=== PATIENT | male | born 1955 | race Caucasian/White ===

== ENCOUNTER 2022-04-11 11:09 | Emergency (ER) | payer MEDICARE, BC, SELFPAY ==
[2022-04-11 11:23] VITALS: BP 148/75; PULSE 69; RESP 20; TEMP 37.2; O2SAT 96; BMI 26.7
[2022-04-11 11:30] VITALS: BP 143/79; PULSE 70; RESP 13; O2SAT 96
[2022-04-11 12:00] VITALS: BP 134/69; PULSE 67; RESP 14; O2SAT 95
--- NOTE | 2022-04-11 12:09 | ED.GENADULT ---
HPI - General Adult General Chief complaint: Chest Pain Stated complaint: Covid + chest discomfort,sore throat Time Seen by Provider: 04/11/22 11:21 History of Present Illness HPI narrative: 66-year-old man presenting to the emergency department with complaint of generally unwell specifically feeling some a tightness like a band across his low chest it is not pleuritic. Is having some cough that can productive. Believes he has had a fever but has never been measured. Of primary complaint though really is sore throat such that has kept him up. No exposures to strep but has some concerns about that. Diagnosis recently though does include COVID. He is fully vaccinated and boosted. He tested positive 2 days ago with symptoms beginning 2 and half days ago with little tickle in his throat. Treatments have included acetaminophen an [place] nighttime cold medicine. Coughing fits are also keeping up. He describes some degree of postnasal drip. No abdominal pain. No diarrhea. No vomiting. Was describing some myalgias that admittedly are a little better today. They are also wondering about Paxlovid treatment, whether they'd still be a candidate. Related Data Previous Rx's Medication Instructions Recorded nirmatrelvir 300 mg (150 mg See Rx Instructions PO .COMPLEX 04/11/22 x2)-ritonavir 100 mg tablet,dose #30 ea pack(EUA) (Paxlovid) Allergies Allergy/AdvReac Type Severity Reaction Status Date / Time No Known Drug Allergies Allergy Verified 04/11/22 11:22 Review of Systems Status of ROS: Reports: 10 or more systems reviewed and unremarkable except as noted in History and below PFSH PFSH Social History Smoking Status: Former smoker Do you use any of these nicotine containing products: None Second hand tobacco smoke exposure: No How often do you have a drink containing alcohol: 2-3 times a week How many standard drinks containing alcohol do you have on a typical day: 1 or 2 How often do you have six or more drinks on one occasion: Never AUDIT-C Alcohol total score: 3 Non-prescribed substance use: denies use service: Yes Exam Narrative: Exam Narrative: Is pleasant. Breathing easily. Easily conversant. Cranial nerves 2-12 intact. No facial swelling erythema tenderness. Sound slightly congested. Has nice thick mustache. Oropharynx is moist not particularly erythematous. Neck is supple without lymphadenopathy. Lungs are clear with equal expansion excursion. Cardiovascular with regular rate and rhythm no murmur rub or gallop identified. There is no reproducible pain to palpation across the chest although there is some discomfort along the anterior costal margins somewhat in the area that he has been describing his discomfort. Abdomen otherwise is soft and nontender. Normoactive bowel sounds. We will extremities without difficulty. There is no edema or pain to palpation. Const: Vital Signs, click to edit/add: Vital Signs - 24 hr 04/11/22 11:23 Temperature 99 F Pulse Rate [Femora l] 69 Respiratory Rate 20 Blood Pressure [Le ft Upper Arm] 148/75 H Pulse Oximetry 96 Oxygen Delivery Me thod Room Air Documenting provider has reviewed patient's vital signs: yes Course Course Hospital Course: Monitored on oximetry which is persistently above 95%. I did spray his throat with Hurricaine spray and this offered a good deal of relief. Vital Signs Vital signs: Initial Vital Signs Temperature 99 F 04/11/22 11:23 Temperature Source Temporal Artery Scan 04/11/22 11:23 Pulse Rate 69 04/11/22 11:23 Pulse Rhythm 04/11/22 11:23 Respiratory Rate 20 04/11/22 11:23 Blood Pressure 148/75 H 04/11/22 11:23 Blood Pressure Mean 99 04/11/22 11:23 Blood Pressure Position Supine 04/11/22 11:23 Pulse Oximetry 96 04/11/22 11:23 Oxygen Delivery Method 04/11/22 11:23 Vital Signs Temperature 99 F 04/11/22 11:23 Pulse Rate 69 04/11/22 11:23 Respiratory Rate 20 04/11/22 11:23 Blood Pressure 148/75 H 04/11/22 11:23 Pulse Oximetry 96 04/11/22 11:23 Oxygen Delivery Method 04/11/22 11:23 Temperature 99 F 04/11/22 11:23 Pulse Rate 69 04/11/22 11:23 Respiratory Rate 20 04/11/22 11:23 Blood Pressure 148/75 H 04/11/22 11:23 Pulse Oximetry 96 04/11/22 11:23 Oxygen Delivery Method 04/11/22 11:23 Medical Decision Making MDM Narrative Medical decision making narrative: I do think that all symptoms can be explained by COVID. I think unlikely to be strep positive. Given COVID diagnosis unlikely to be related pneumonia and too early for pulmonary embolus. Given that he takes no medications and no known renal problems, no cardiac history either incidentally, I would expect him to be a candidate for Paxlovid. Will go ahead and check a point of care creatinine and discharge in a busy emergency department anticipating adequate renal function. If creatinine returns in the concerning range, will contact patient. Lab Data Lab results reviewed: Yes I reviewed the patient's lab results Labs: Point of care creatinine was 1.1 ECG Data Attestation: I personally reviewed and interpreted this ECG as follows: (EKG by my read shows normal sinus no ischemic changes. Rate of 68.) Discharge Plan Discharge Clinical Impression: COVID-19, Chest pain, Pharyngitis Patient Disposition: Home w/ Parent or Adult Condition: Improved Additional Instructions: As I noted, 20% benzocaine is available [id number] last checked in the form of Orajel extra-strength. You might ask the pharmacist for another option? Continue to focus on hydration. Sleep under the mist of cool mist humidifier. If cough seems to be triggered somewhat by postnasal drip, pseudoephedrine might be helpful. Might try Delsym otherwise. Can take up to 100 mg of ibuprofen up to 1000 mg of acetaminophen per dose. Alternative to the ibuprofen might be up to 500 mg of naproxen 2 times daily. I will call you if this creatinine is unexpectedly off and requires different Paxlovid dosing Please quarantine for 10 days from onset of symptoms If you are having increasing shortness of breath, get yourself a pulse oxygen monitor and return to the emergency department for oxygen saturations that are persistently around 90%. Prescriptions: New Paxlovid (EUA) 300 mg (150 mg x 2)-100 mg tablets,dose pack See Rx Instructions .ROUTE .COMPLEX Qty: 30 0RF Rx Instructions: take TWO 150 mg tablets of nirmatrelvir with ONE 100 mg tablet of ritonavir twice daily for 5 days Follow Up/Referrals: Horacio Carvalho MD [Primary Care Provider] - Stand Alone Forms: [email or web address] Info Instructions
--- OUTSIDE RECORDS SUMMARY | 2022-04-11 12:12 | XMS_ITS | Clinical Summary ---
:1955 Author Organization [facility] [employer] [facility] Address [place] [address] Care Team Providers Name Role Phone Delonte Toro MD Primary Care Provider [phone] Allergies No known active allergies Medications No known medications Active Problems Problem Noted Date History of colon polyps Overview: Colonoscopy 03/2019 polyp, repeat in 5 y ears Immunizations Name Administration Dates Next Due AMB Influenza, IIV4 PF (=>6 mos Flulaval,Fluzone 04/15/2019 Fluarix)(Flu Clinic Only) Tdap 02/08/2019 Zoster (Shingrix-RZV, recombinant) 04/15/2019, 02/08/2019 Family History Medical History Relation Name Comments Cancer Brother unknown primary Cancer Father also had lung ca ncer Cancer-prostate Father Cancer-colon Mother at 79 Cancer-colon Other maternal uncle Cancer-breast Sister Diabetes Sister Relation Name Status Comments Brother Father Mother Other Sister Social History Tobacco Use Types Packs/Day Years Used Date Former Smoker 0.5 15 04/1975 - 06/1994 Smokeless Tobacco: Never Used Tobacco Cessation: Counseling Given: Yes Alcohol Use Standard Drinks/Week Comments Yes 2 (1 standard drink = 0.6 oz pure alcoho l) occasionally Alcohol Habits Answer Date Recorded How often do you have a drink containing alcohol? Not asked How many drinks containing alcohol do you have on a Not aske d typical day when you are drinking? How often do you have six or more drinks on one occasion? Mo nthly 01/27/2019 Comment: occasionally 01/27/2019 Physical Activity Answer Date Recorded On average, how many days per week do you engage in moderate 3 days 02/08/2019 to strenuous exercise (like walking fast, running, jogging, dancing, swimming, biking, or other activities that cause a light or heavy sweat)? On average, how many minutes do you engage in exercise at No t asked this level? Stress Answer Date Recorded Do you feel stress - tense, restless, nervous, or Only a lit tle 02/08/2019 anxious, or unable to sleep at night because your mind is troubled all the time - these days? Sex Assigned at Date Recorded Not on file Obstetrics History Last Filed Vital Signs Vital Sign Reading Time Taken Comments Blood Pressure 130/59 03/25/2019 11:38 AM CDT Pulse 56 03/25/2019 11:38 AM CDT Temperature - - Respiratory Rate - - Oxygen Saturation 99% 03/25/2019 11:38 AM CDT Inhaled Oxygen Concentration - - Weight 86 kg (189 lb 8 oz) 02/08/2019 9:10 AM CDT Height 172.7 cm (5' 8) 02/08/2019 9:10 AM CDT Body Mass Index 28.81 02/08/2019 9:10 AM CDT Plan of Treatment Health Maintenance Due Date Last Done Comments COVID-19 vaccine series (#1) 01/29/1956 BMI (ht and wt on same day) for age 0902/09/2020 02/08/2019, 01/27/2019 18+ Depression screening for age 12+ 02/10/2020 02/09/2019, 08/2018, 01/27/2019 Pneumococcal series for age 65+ ( - 2021 PCV) Influenza for age 65+ 02/06/2022 04/15/2019 Lipids for age 45-75 02/09/2024 02/08/2019 Colonoscopy through age 75 03/25/2024 03/25/2019, 9, 03/25/2019 Tetanus booster 02/08/2029 02/08/2019 Hepatitis C screening for age 18-79 Completed 02/08/2019 Tdap Completed 02/08/2019 Zoster (shingles) series for age 50+ Completed 04/15/2019, 02/08/2019 Results Not on filefrom Last 3 Months Insurance Payer Benefit Plan / Subscriber ID Effective Dates Phone Addre ss Type Group [employer] [id number] 2017-Present [address] [place] [id number] Care Teams Caterers Helper Relationship Specialty Start Date End Date Delonte Toro MD PCP - General Family Practice 01/18/19 [address] [place] [address]
[2022-04-11 12:30] VITALS: PULSE 66; RESP 15; O2SAT 95
== END 2022-04-11 12:45 | disposition home or self-care (01) ==
PROVIDERS: Emergency Provider Family Medicine; PCP Family Medicine
DX: U07.1 COVID-19 (principal)
CPT/HCPCS: 93005; 99283; 99284

== ENCOUNTER 2023-01-30 09:58 | Outpatient (CLI) | payer MEDICARE, BC, SELFPAY | END 2023-01-30 09:59 | disposition home or self-care (01) | LOC: NFLDREF 02-02 08:54 | PROVIDERS: PCP Family Medicine; Referring Provider Family Medicine; Visit Provider Family Medicine | DX: Z13.1 Encounter for screening for diabetes mellitus (principal); Z12.5 Encounter for screening for malignant neoplasm of prostate; Z13.6 Encounter for screening for cardiovascular disorders | CPT/HCPCS: 80061; 82947; 84153 ==

== ENCOUNTER 2023-02-26 09:07 | Outpatient (CLI) | payer MEDICARE, BC, SELFPAY ==
--- NOTE | 2023-02-26 09:15 | CRLHL7_ITS ---
For Patients: As a result of the Cures Act, medical imaging exams and procedure reports are released immediately into your electronic medical record. You may view this report before your referring provider. If you have questions, please contact your health care provider. Examination: US abdominal aorta Indication: Abdominal aortic aneurysm screening. Technique: Martinez scale and color Doppler images of the aorta and common iliac arteries are obtained. Comparison: None Findings: Proximal aorta: 2.1 x 2.0 cm Mid aorta: 1.7 x 1.9 cm Distal aorta: 1.6 x 1.7 cm Right common iliac artery: 1.2 x 1.3 cm Left common iliac artery: 1.0 x 1.1 cm Impression: No abdominal aortic aneurysm. Dictated by Jenaro Felix MD @ 02/26/2023 9:38:52 AM (Electronically Signed)
== END 2023-02-26 09:08 | disposition home or self-care (01) ==
LOC: US 09:08
PROVIDERS: PCP Family Medicine; Visit Provider Family Medicine
DX: Z13.6 Encounter for screening for cardiovascular disorders (principal)
CPT/HCPCS: 76706

== ENCOUNTER 2024-05-17 07:30 | Outpatient (CLI) | payer MEDICARE, BC, SELFPAY | END 2024-05-17 07:31 | disposition home or self-care (01) | LOC: NFLDREF 05-18 09:19 | PROVIDERS: PCP Family Medicine; Referring Provider Family Medicine; Visit Provider Family Medicine | DX: E78.5 Hyperlipidemia, unspecified (principal); Z80.42 Family history of malignant neoplasm of prostate; Z12.5 Encounter for screening for malignant neoplasm of prostate | CPT/HCPCS: 80053; 80061; 84443; G0103 ==

== ENCOUNTER 2024-06-16 12:21 | Outpatient (CLI) | payer MEDICARE, BC, SELFPAY ==
--- NOTE | 2024-06-16 13:11 | P.ANES_ITS ---
Anesthesia Charges Start Date/Time Anesthesia Start Date: 06/16/24 Anesthesia Start Time: 13:15 Stop Date/Time Anesthesia Stop Date: 06/16/24 Anesthesia Stop Time: 13:46 Coding CPT Codes CPT Codes: JOSR LWR INTST NDCT NOS - 47646 ([id number]) P1 - NORMAL HEALTHY PATIENT, QX - HEALTHCARE MARKET CONSULTANT SVMonique W/ MED DIRECTION, QK - DRIER HELPER 2-4 CNCRNT JOSR PROC
--- NOTE | 2024-06-16 13:11 | W.ANESCHARGE ---
Anesthesia Charges Start Date/Time Anesthesia Start Date: 06/16/24 Anesthesia Start Time: 13:15 Stop Date/Time Anesthesia Stop Date: 06/16/24 Anesthesia Stop Time: 13:46 Coding CPT Codes CPT Codes: JOSR LWR INTST NDLA NOS - 40381 ([id number]) P1 - NORMAL HEALTHY PATIENT, QX - CLIMATE CHANGE ANALYST SVMonique W/ MED DIRECTION, QK - HOUSECLEANER FLOOR 2-4 CNCRNT JOSR PROC
--- NOTE | 2024-06-16 14:47 | W.ANESCHARGE ---
Anesthesia Charges Start Date/Time Anesthesia Start Date: 06/16/24 Anesthesia Start Time: 13:15 Stop Date/Time Anesthesia Stop Date: 06/16/24 Anesthesia Stop Time: 13:46 Coding CPT Codes CPT Codes: JOSR LWR INTST NDSC NOS - 16639 ([id number]) QK - VAN OWNER OPERATOR 2-4 CNCRNT ANES PROC, QX - CELLOPHANER SVC W/ MED DIRECTION, P1 - NORMAL HEALTHY PATIENT
--- NOTE | 2024-06-16 14:47 | P.ANES_ITS ---
Anesthesia Charges Start Date/Time Anesthesia Start Date: 06/16/24 Anesthesia Start Time: 13:15 Stop Date/Time Anesthesia Stop Date: 06/16/24 Anesthesia Stop Time: 13:46 Coding CPT Codes CPT Codes: JOSR LWR INTST NDSC NOS - 37976 ([id number]) QK - BATTER DEPOSITOR 2-4 CNCRNT ANES PROC, QX - SPEECH THERAPIST EARLY INTERVENTION SVC W/ MED DIRECTION, P1 - NORMAL HEALTHY PATIENT
== END 2024-06-16 12:22 | disposition home or self-care (01) ==
LOC: OP CLINIC 12:22
PROVIDERS: PCP Family Medicine; Visit Provider Surgery
DX: Z12.11 Encounter for screening for malignant neoplasm of colon (principal); D12.2 Benign neoplasm of ascending colon; D12.3 Benign neoplasm of transverse colon; Z86.0100 Personal history of colon polyps, unspecified; Z80.0 Family history of malignant neoplasm of digestive organs
CPT/HCPCS: 00811; 45385; 88305; J2704

== ENCOUNTER 2025-05-01 11:45 | Emergency (ER) | payer MEDICARE, BC, SELFPAY ==
--- OUTSIDE RECORDS SUMMARY | 2025-05-01 11:46 | XMS_ITS | Clinical Summary ---
Author Organization [facility] Address [address] [place] [id number] Care Team Providers Care Global Project Manager Name Role Phone Pcp, No Primary Care Provider Unavailabl e Allergies No known active allergies Medications No known medications Active Problems Problem Noted Date Diagnosed Date History of colon polyps Overview (03/29/2019): Colonoscopy 03/2019 polyp, repeat in 5 years Immunizations Immunization Administration Dates Next Due AMB Influenza, IIV4 PF (=>6 mos Flulaval,Fluzone Fluarix)(Flu Clinic Only) 04/15/2019 Tdap 02/08/2019 Zoster (Shingrix-RZV, recombinant) 04/15/2019, Family History Medical History Relation Name Comments Cancer Brother unknown primary Cancer Father also had lung c ancer Cancer-prostate Father Cancer-colon Mother at 79 Cancer-colon Other maternal uncle Cancer-breast Sister Diabetes Sister Relation Name Status Comments Brother Father Mother Other Sister Social History Tobacco Use Types Packs/Day Years Used Date Smoking Tobacco: Former Cigarettes 0.5 19.2 1 06/1974 - 06/08/1994 Smokeless Tobacco: Never Tobacco Cessation:Counseling Given: Yes Alcohol Use Standard Drinks/Week Comments Yes 2 (1 standard drink = 0.6 oz pur e alcohol) occasionally PHQ-2 Answer Date Recorded PHQ-2 Score 0 01/27/2019 [facility] [place] [facility] Occup[facility] - Occupational Stress Questionnaire Answer Date Recorded Feeling of Stress Only a little 02/08/2019 Exercise Vital Sign Answer Date Recorde d Days of Exercise per Week 3 days 2018 Minutes of Exercise per Session Not on file 02/08/2019 Sex and Gender Information Value Date Recorded Sex Assigned at Not on file Legal Sex Male 3:45 PM [employer]YRE BU[employer] Gender Identity Not on file Sexual Orientation Not on file Obstetrics History Last Filed Vital Signs Vital Sign Reading Time Taken Comments Blood Pressure 130/59 03/25/2019 11:38 AM CDT Pulse 56 03/25/2019 11:38 AM CDT Temperature - - Respiratory Rate - - Oxygen Saturation 99% 03/25/2019 11:38 AM CDT Inhaled Oxygen Concentration - - Weight 86 kg (189 lb 8 oz) 02/08/2019 9:10 AM CD T Height 172.7 cm (5' 8) 02/08/2019 9:10 AM CDT Body Mass Index 28.81 02/08/2019 9:10 AM CDT Plan of Treatment Health Maintenance Due Date Last Done Comments Pneumococcal series for age 50+ (1 of 1 - PCV) 2006 BMI (ht and wt on same day) for age 18+ 02/09/2020 02/08/2019, 01/27/2019 Depression screening for age 12+ 02/10/2020 02/09/2019, 02/08/2019, 01/27/2019 Lipids for age 45-75 02/09/2024 02/08/2019 Colonoscopy through age 75 03/25/202403/25, 03/25/2019, 03/25/2019 Influenza Vaccine (#1) 2025 04/15/2019 Tetanus booster 02/08/2029 02/08/2019 RSV vaccine for adults or (1 - 1-dose 75+ series) 2031 Hepatitis C screening for ag e 18-79 Completed 02/08/2019 Zoster (shingles) series for age 50+ Completed 04/15/2019, 02/08/2019 Hepatitis B series for 19+ Aged Out N o longer eligible based on patient's age to complete this topic Procedures Procedure Name Priority Date/Time Associated Diagnosis Comments COLONOSCOPY SCREENING Routine 03/25/2019 11:14 AM CDT History of colon polyps ANTI HCV Routine 02/08/2019 10:14 AM CDT Need for hepatitis C screening test LIPID PANEL W REFLEX MEASURED LDL Routine 02/08/2019 10:14 AM CDT Lipid screening from Last 3 Months or Most Recently Relevant to Health Maintenance Results * COLONOSCOPY SCREENING (03/25/2019 11:14 AM CDT) us Delonte Toro MD GI PROCEDURE ORD Final R esult * (ABNORMAL) LIPID PANEL W REFLEX MEASURED LDL (02/08/2019 10:14 AM CDT) Pathologist [facility] CHOLESTEROL,TOTAL 226(H) 100 - 199 mg/dL 02/08/2019 4:56 PM CDT [facility] TRIGLYCERIDES 119 <150 mg/dL 02/08/2019 4:56 PM CDT [facility] HDL CHOLESTEROL 56 >40 mg/dL 9 4:56 PM CDT [facility] NON-HDL CHOLESTEROL 170(H) <145 mg/dl 02/08/2019 4:56 PM CDT [facility] CHOL/HDL RATIO 4.04 <4.50 02/08/2019 4:56 PM CDT [facility] LDL CHOLESTEROL 146(H) <=130 mg/dL 02/08/2019 4:56 PM CDT [facility] PROVIDER ORDERED STATUS RANDOM 02/08/2019 4:56 PM CDT [facility] Blood BLOOD SPECIMEN / Unknown Venipuncture / Unknown 02/08/2019 10:14 AM CDT 02/08/2019 10:14 AM CDT us Delonte Toro MD CHEMISTRY Final Re sult [facility] [address] [place] [address], * ANTI HCV (02/08/2019 10:14 AM CDT) Pathologist [facility] HEPATITIS C ANTIBODY Non-React danette Non-React danette 02/08/2019 5:17 PM CDT [facility] Comment:Antibodies to HCV no t detected; does not exclude the possibility of exposure to HCV. Blood BLOOD SPECIMEN / Unknown Venipuncture / Unknown 02/08/2019 10:14 AM CDT 02/08/2019 10:14 AM CDT us Delonte Toro MD SEND OUTS Final Re sult [facility] [address] [place] [address], [place] from Last 3 Months or Most Recently Relevant to Health Maintenance Insurance [facility] Care Teams Global Project Manager Relationship Specialty Start Date End Date Pcp, No . PCP - General 06/14/24
[2025-05-01 11:53] VITALS: BP 161/80; PULSE 55; RESP 16; TEMP 36.4; O2SAT 97; BMI 26.1
--- NOTE | 2025-05-01 12:12 | ED.NECK ---
HPI - Neck Pain/Injury General Time Seen by Provider: 12:12 Date Seen: 05/01/25 Chief Complaint: Neck Injury/Pain Stated Complaint: Jaw pain Time Seen by Provider: 05/01/25 12:11 Source: patient and RN notes reviewed Mode of arrival: ambulatory Limitations: no limitations History of Present Illness HPI Narrative: This 69yo male is coming into the ED with episode of bilateral jaw pain last night. He contacted the clinic as well as and they advised him to come to the ED. He was just sitting on the couch last night when he was hit with severe bilateral jaw pain. He could not touch and reproduce it, maybe actually felt better putting pressure on the jaw. He points to the angles of his jaw where he felt the pain. There was nothing internal like sore throat, no difficulty swallowing or talking. Never did he feel any associated chest pain, breathing issues or difficulty breathing. He tried Tylenol and ibuprofen, did help some. He had difficulty falling asleep due to the discomfort. He noted that there was never any sense of any dental pain, no internal sore throat type symptoms, no difficulty swallowing. He has had COVID twice, felt sore throat symptoms with that, definitely felt different than what he was having but he does wonder about bilateral jaw pain potentially being a new representation of COVID. Nursing staff did collect triple swab on him. I did review with him that I think it is less likely to be COVID with his symptoms. Today when he awoke, just had a little sense of residual symptoms, states is almost like somebody hit him across the top of the throat, just mild soreness, he would maybe rate at a 1. No GI symptoms with this. Related Data Home Medications ?Medication ?Instructions ?Recorded ?Confirmed No Known Home Medications 05/01/25 05/01/25 Allergies Allergy/AdvReac Type Severity Reaction Status Date / Time No Known Drug Allergies Allergy Verified 05/19/24 08:50 Review of Systems Status of ROS: Reports: 6 or more systems reviewed and unremarkable except as noted in History and below [facility] Medical History Cough ?R05.9 - Cough, unspecified (ICD-10) Sinusitis ?J32.9 - Chronic sinusitis, unspecified (ICD-10) Family history of campylobacteriosis ?Z83.1 - Family history of other infectious and parasitic diseases (ICD-10) Surgical History History of shoulder surgery ?Z98.890 - Other specified postprocedural states (ICD-10) History of knee surgery ?Z98.890 - Other specified postprocedural states (ICD-10) Family History Other Colon cancer Social History What is your current living situation?: I presently have a place to live Problems where you live: no known problems In the past 12 months, utilities in danger of being shut off: no In past 12 months, lack of transportation kept you from medical appts, meetings, work, or getting things needed for daily living: no In the past 12 mos, have been you worried that your food would run out before you had money to buy more?: never true In the past 12 mos, the food you bought just didn't last and you didn't have money to buy more?: never true Smoking Status: Former smoker Do you use any of these nicotine containing products: None Second hand tobacco smoke exposure: No How often do you have a drink containing alcohol: 2-3 times a week How many standard drinks containing alcohol do you have on a typical day: 1 or 2 How often do you have six or more drinks on one occasion: Never AUDIT-C Alcohol total score: 3 Non-prescribed substance use: denies use How often does anyone, including family, friends and others, physically hurt you: never How often does anyone, including family, friends and others, insult or talk down to you: never How often does anyone, including family, friends and others, threaten you with harm: never How often does anyone, including family, friends and others, scream or curse at you: never service: Yes Exam Const: Vital Signs, click to edit/add: Vital Signs - 24 hr 05/01/25 11:53 05/01/25 14:02 05/01/25 14:03 Temperature 97.6 F Pulse Rate [Pulse Oximeter] 55 L Respiratory Rate 16 17 14 Blood Pressure 144/76 H Blood Pressure [Ri ght Upper Arm] 161/80 H Pulse Oximetry 97 Oxygen Delivery Me thod Room Air This 69-year-old male is alert, interactive, no apparent distress. He is seen in exam room 3. Pupils equal round reactive, sclera clear, symmetrical facial function. Anterior nares normal, oropharynx normal, posterior pharynx normal, no mucosal changes noted. No pain on palpation of his jaw, no submental adenopathy or masses, nontender. He has normal carotid pulses, no neck masses, no thyromegaly masses or nodules, no reproducible pain. Neck has full range of motion without any difficulty. Lungs are clear, good air entry, no wheezing or crackles, no tachypnea, no accessory muscle use. CV regular rate and rhythm, no murmur. Abdomen is soft, nontender, nondistended, no organomegaly. Has no lower extremity edema. Documenting provider has reviewed patient's vital signs: yes Course Course ED Course: Patient's symptoms have improved, does not seem to be typical for any thing internal like a sore throat. He does worry about COVID, nursing staff collected a COVID swab which I think is reasonable to do but he admits he had really no sore throat with this. There does not seem to be any dysphagia or GI symptoms or swallowing problems with this. We do need to be worried about this being referred pain which he was aware of. We will get an EKG and troponin. Solitary troponin and EKG should be sufficient at this patient's timing of his symptoms was last night. Would recommend that we consider doing CT angiography of his neck vessels and consider etiologies like dissection. He does agree to proceed with testing. Will do other baseline labs. On clinical exam, do not find anything to explain these symptoms. Reevaluation(s) Time of Reevaluation #1: 14:52 Reevaluation #1: Have reviewed CT angiogram of his neck, no findings noted. We did go over the incidental findings of non radiologic concerning thyroid nodules which by Radiology criteria do not require follow-up. We did review his labs, no evidence of any acute coronary injury, no [place]. Troponin and EKG not showing any pathology. We do not know what the etiology of his symptoms are but there certainly is nothing that we can find life-threatening right now, his symptoms have improved. He states he has an appointment with his primary Dr. Carvalho this coming Thursday, he will plan on keeping this to follow-up. Vital Signs Vital signs: Initial Vital Signs Temperature 97.6 F 05/01/25 11:53 Temperature Source Temporal Artery Scan 05/01/25 11:53 Pulse Rate 55 L 05/01/25 11:53 Respiratory Rate 16 05/01/25 11:53 Blood Pressure 161/80 H 05/01/25 11:53 Blood Pressure Mean 107 H 05/01/25 11:53 Blood Pressure Position Sitting 05/01/25 11:53 Pulse Oximetry 97 05/01/25 11:53 Oxygen Delivery Method Room Air 05/01/25 11:53 Vital Signs Temperature 97.6 F 05/01/25 11:53 Pulse Rate 55 L 05/01/25 11:53 Respiratory Rate 16 05/01/25 11:53 Blood Pressure 161/80 H 05/01/25 11:53 Pulse Oximetry 97 05/01/25 11:53 Oxygen Delivery Method Room Air 05/01/25 11:53 Temperature 97.6 F 05/01/25 11:53 Pulse Rate 55 L 05/01/25 11:53 Respiratory Rate 14 05/01/25 14:03 Blood Pressure 144/76 H 05/01/25 14:02 Pulse Oximetry 97 05/01/25 11:53 Oxygen Delivery Method Room Air 05/01/25 11:53 MDM - Neck Pain/Injury Lab Data Attestation: I reviewed the patient's lab results. Labs: Lab Results 05/01/25 05/01/25 05/01/25 Range/Units 11:55 12:20 12:55 WBC 8.04 (4.50-11.00) K/uL RBC 5.02 (4.30-5.90) m/uL Hgb 15.0 (13.5-17.5) gm/dL Hct 44.5 (37.0-53.0) % MCV 89 (80-100) fL MCH 30 (26-34) pg MCHC 34 (32-36) gm/dL RDW Coeff of Matthew 12.7 (11.5-15.5) % Plt Count 189 (140-440) K/uL Neut % (Auto) 72.0 (42.0-72.0) % Lymph % (Auto) 17.7 L (20-44) % Navarro % (Auto) 9.1 (0.0-11.0) % Eos % (Auto) 0.9 (0.0-7.0) % Baso % (Auto) 0.2 (0.0-3.0) % Neut # (Auto) 5.79 (1.7-7.0) K/uL Lymph # (Auto) 1.40 (0.90-2.90) K/uL Navarro # (Auto) 0.70 (0.00-0.90) K/UL Eos # (Auto) 0.07 (0.00-0.50) K/uL Baso # (Auto) 0.02 (0.00-0.30) K/uL Abs Immat Gran (auto) 0.01 (0.00-0.30) K/uL Imm/Tot Granulo (auto) 0.1 % Sodium 136 (135-149) mmol/L Potassium 4.1 (3.6-5.1) mmol/L Chloride 100 (96-114) mmol/L Carbon Dioxide 27 (20-32) mmol/L Anion Gap 9 (7-15) mEq/L BUN 17 (7-30) mg/dL Creatinine 1.0 (0.5-1.5) mg/dL Estimated Creat Clear 70.70 Estimated GFR 82 ml/min Glucose 111 (60-115) mg/dL Calcium 9.2 (8.4-10.6) mg/dL Total Bilirubin 1.1 (0.1-1.5) mg/dL AST 22 (12-35) U/L ALT 17 (4-50) U/L Alkaline Phosphatase 58 (40-150) U/L Troponin I < 0.01 (0.01-0.04) ng/mL C-Reactive Protein < 0.5 L (0.5-1.0) mg/dL NT-Pro-B Natriuret Pep 105 (See Note) pg/mL Total Protein 7.3 (6.0-8.3) g/dL Albumin 4.5 (3.3-5.0) g/dL SARS-CoV-2 (PCR) Negative SARS-CoV-2 (Negative) Influenza Type A (PCR) Negative PCR FLU A (Negative) Influenza Type B (PCR) Negative PCR FLU B (Negative) RSV (PCR) Negative PCR RSV (Negative) POC Creatinine 1.1 (0.6-1.3) mg/dl POC Troponin I 0.00 L (0.01-0.04) ng/ml Imaging Data CT- Other: Attestation: I have reviewed the pertinent imaging results. Radiologist's impression: Patient: RENATA PEREZ Facility:?[facility] Patient ID:?[id number] Site Patient ID:?[id number] Site :?[id number] Study:?CT-Neck Angio W/ 95CC [id number] 1:44:17 PM Ordering Physician:?Teresa Meyer Preliminary Report: INDICATION: NECK PAIN, JAW PAIN BILAT. (Sic) COMPARISON: None available. PRELIMINARY FINDINGS: 1. No findings to explain the clinical history. 2. No cervical carotid or vertebral occlusion, flow limiting stenosis or signs of dissection. 3. Bilateral thyroid nodules measuring less than 15 mm for which no further workup is indicated per ACR white paper guidelines. 4. No other significant incidental findings. THIS IS A PRELIMINARY REPORT. FINAL REPORT TO BE ISSUED BY THE SUBSPECIALITY SECTION OF THE DEPARTMENT. Dictated by Feroz Schofield MD @ 05/01/2025 2:25:37 PM Read by:?Feroz Schofield MD @05/01/2025 2:25:41 PM ECG Data Attestation: I personally reviewed and interpreted this ECG as follows: (Sinus bradycardia, 52 beats per minute. No evidence of any ischemia or infarct.) ECG interpretation date: 05/01/25 ECG interpretation time: 12:04 Prior ECG tracings: available for review Discharge Plan Discharge Clinical Impression: Jaw pain Patient Disposition: Home, Self-Care Condition: Stable Instructions: Temporomandibular Disorder (ED) Additional Instructions: It is unclear what this episode of bilateral jaw pain was last night. Your EKG and troponin are normal so you have not sustained a heart attack. The vascular imaging is not showing any evidence of dissection or aneurysm on the preliminary review. Please keep your follow-up appointment in clinic with your primary care provider this coming Thursday. If you have recurrence of symptoms, develop new or concerning changes, please seek re-evaluation in the interim. Activity Level: Activity as Tolerated Prescriptions: No Action No Known Home Medications Follow Up/Referrals: Horacio Carvalho MD [Primary Care Provider, Family Practice] Stand Alone Forms: [employer] Info Instructions
--- NOTE | 2025-05-01 12:19 | CRLHL7_ITS ---
For Patients: As a result of the Century Cures Act, medical imaging exams and procedure reports are released immediately into your electronic medical record. You may view this report before your referring provider. If you have questions, please contact your health care provider. INDICATION: Neck pain. TECHNIQUE: CTA neck with contrast bolus tracking, 3D angiographic rendering using maximum intensity projection (MIP) and images permanently archived. FINDINGS: There is carotid atherosclerosis bilaterally. There is no significant carotid artery stenosis or dissection. There is no significant vertebral artery stenosis or dissection. Small indeterminate thyroid nodules are present. The cervical spine is in normal alignment. IMPRESSION: No significant carotid or vertebral artery stenosis or dissection. Please note that all CT scans at this facility use dose modulation, iterative reconstruction, and/or weight-based dosing when appropriate to reduce radiation dose to as low as reasonably achievable. Dictated by Leighton Bullock MD @ 05/01/2025 8:04:15 PM (Electronically Signed)
[2025-05-01 12:26] LABS: Troponin, Point-of-Care* 0.00 ng/ml (0.01-0.04)
[2025-05-01 12:38] LABS: PCR FLU A Negative PCR FLU A (Negative); PCR FLU B Negative PCR FLU B (Negative); PCR RSV Negative PCR RSV (Negative); SARS PCR* Negative SARS-CoV-2 (Negative)
[2025-05-01 12:45] LABS: Hematocrit* 44.5 % (37.0-53.0); Hemoglobin* 15.0 gm/dL (13.5-17.5); Immature Granulocytes Abs Auto 0.01 K/uL (0.00-0.30); Immature Granulocytes Pct Auto 0.1 %; Mean Corpuscular HGB Conc 34 gm/dL (32-36); Mean Corpuscular Hemoglobin 30 pg (26-34); Mean Corpuscular Volume 89 fL (80-100); RDW Coefficient of Variation % 12.7 % (11.5-15.5); Red Blood Count* 5.02 m/uL (4.30-5.90); White Blood Count* 8.04 K/uL (4.50-11.00)
[2025-05-01 12:47] LABS: Lymphocytes Absolute Auto 1.40 K/uL (0.90-2.90); Slide Review Reflex No
[2025-05-01 12:56] LABS: Creatinine, Point-of-Care* 1.1 mg/dl (0.6-1.3)
[2025-05-01 13:03] LABS: Albumin* 4.5 g/dL (3.3-5.0); Chloride* 100 mmol/L (96-114); Potassium* 4.1 mmol/L (3.6-5.1); Sodium* 136 mmol/L (135-149)
[2025-05-01 13:05] LABS: Alanine Aminotransferase* 17 U/L (4-50); Blood Urea Nitrogen* 17 mg/dL (7-30); Creatinine* 1.0 mg/dL (0.5-1.5); Est. Creatinine Clearance* 70.70; Estimated Glomerular Filt Rate 82 ml/min
[2025-05-01 13:06] LABS: Alkaline Phosphatase* 58 U/L (40-150); Anion Gap 9 mEq/L (7-15); Aspartate Amino Transferase* 22 U/L (12-35); Bilirubin Total* 1.1 mg/dL (0.1-1.5); Calcium* 9.2 mg/dL (8.4-10.6); Carbon Dioxide* 27 mmol/L (20-32); Glucose* 111 mg/dL (60-115); Total Protein* 7.3 g/dL (6.0-8.3)
[2025-05-01 13:17] LABS: NT Pro B Type NatriureticPept* 105 pg/mL (See Note)
[2025-05-01 14:02] VITALS: BP 144/76; RESP 17
[2025-05-01 14:03] VITALS: RESP 14
== END 2025-05-01 15:09 | disposition home or self-care (01) ==
PROVIDERS: Emergency Provider Family Medicine; PCP Family Medicine
DX: R68.84 Jaw pain (principal)
CPT/HCPCS: 36415; 70498; 80053; 82565; 83735; 83880; 84484; 85025; 85379; 85610; 85730; 86140; 87631; 93005; 94761; 96361; 96374; 99284; 99285; J2060; J7030; Q9967

== ENCOUNTER 2025-05-01 19:47 | Emergency (ER) | payer MEDICARE, BC, SELFPAY ==
[2025-05-01] VITALS (8 sets, daily range): BP systolic 134–191; BP diastolic 68–91; PULSE 60–68; RESP 17–22; TEMP 36.6–36.8; O2SAT 95–99; BMI 27.7
--- NOTE | 2025-05-01 20:14 | ED.CHESTPAIN ---
HPI - Chest Pain General Date Seen: 05/01/25 Chief Complaint: Jaw Injury/Pain Stated Complaint: pain in jaw Time Seen by Provider: 05/01/25 20:02 Source: patient, family, RN notes reviewed and old records reviewed Mode of arrival: ambulatory Limitations: no limitations History of Present Illness HPI narrative: Patient is a 69-year-old gentleman with no history of cardiac disease who presents here for the 2nd time today with jaw discomfort, describes jaw discomfort up into his sub jaw region into his masseter muscles. Which chronic clamps down cause and causes him pain. He notes that he had a negative cardiac workup here earlier today. The came on again at home. He is here with his in is very anxious over the situation. The discomfort comes on when he is sitting watching TV. He does not endorse any exercise intolerance, chest pain shortness of breath or other issues. He has no pre syncope. He has no history of cardiac issues stress tests or other workup. Other than today. MD complaint: other Timing of current episode: episodic Prior episodes: Yes Onset: during rest Pain radiation: jaw/teeth Severity: severe Quality: tightness Relieving factors: nothing Exacerbating factors: nothing Associated symptoms: sense of impending doom Treatment prior to arrival: none Risk Factors Coronary artery disease risk factors: none Thoracic aortic dissection risk factors: none Related Data Home Medications ?Medication ?Instructions ?Recorded ?Confirmed No Known Home Medications 05/01/25 05/01/25 Allergies Allergy/AdvReac Type Severity Reaction Status Date / Time No Known Drug Allergies Allergy Verified 05/01/25 19:55 Review of Systems Status of ROS Reports: 10 or more systems reviewed and unremarkable except as noted in History and below [facility] Medical History Cough ?R05.9 - Cough, unspecified (ICD-10) Sinusitis ?J32.9 - Chronic sinusitis, unspecified (ICD-10) Family history of campylobacteriosis ?Z83.1 - Family history of other infectious and parasitic diseases (ICD-10) Surgical History History of shoulder surgery ?Z98.890 - Other specified postprocedural states (ICD-10) History of knee surgery ?Z98.890 - Other specified postprocedural states (ICD-10) Family History Other Colon cancer Social History What is your current living situation?: I presently have a place to live Problems where you live: no known problems In the past 12 months, utilities in danger of being shut off: no In past 12 months, lack of transportation kept you from medical appts, meetings, work, or getting things needed for daily living: no In the past 12 mos, have been you worried that your food would run out before you had money to buy more?: never true In the past 12 mos, the food you bought just didn't last and you didn't have money to buy more?: never true Smoking Status: Former smoker Do you use any of these nicotine containing products: None Second hand tobacco smoke exposure: No How often do you have a drink containing alcohol: 2-3 times a week How many standard drinks containing alcohol do you have on a typical day: 1 or 2 How often do you have six or more drinks on one occasion: Never AUDIT-C Alcohol total score: 3 Non-prescribed substance use: denies use How often does anyone, including family, friends and others, physically hurt you: never How often does anyone, including family, friends and others, insult or talk down to you: never How often does anyone, including family, friends and others, threaten you with harm: never How often does anyone, including family, friends and others, scream or curse at you: never service: Yes Exam Narrative Exam Narrative: Find the patient is stabilization room 2, he has elevated blood pressure, very anxious, with his rubbing his hand. His pupils equal round reactive to light there is no scleral icterus redness TMs are normal oropharynx normal mouth opening is normal, there is no palpable tenderness masses lymphadenopathy anterior posterior chains are along his jaw. His neck is supple full range of motion chest is clear bilaterally no wheezing crackles noted heart sounds are normal moves all extremities independently well. Heart sounds are normal. Const Vital Signs, click to edit/add: Vital Signs - 24 hr 05/01/25 19:52 05/01/25 20:08 05/01/25 20:32 Temperature 97.8 F 97.8 F Pulse Rate Pulse Rate [Pulse Oximeter] 60 68 Respiratory Rate 22 18 Respiratory Rate [Jaw] 18 Blood Pressure Blood Pressure [Right Upper Arm] 191/91 H 146/71 H Pulse Oximetry 98 98 Oxygen Delivery Method Room Air Room Air 05/01/25 20:32 05/01/25 20:52 05/01/25 21:02 Temperature Pulse Rate 61 60 Pulse Rate [Pulse Oximeter] Respiratory Rate 17 17 Respiratory Rate [Jaw] Blood Pressure 145/71 H 139/70 Blood Pressure [Right Upper Arm] Pulse Oximetry 96 96 97 Oxygen Delivery Method 05/01/25 21:33 05/01/25 22:07 05/01/25 22:07 Temperature 98.2 F Pulse Rate 62 Pulse Rate [Pulse Oximeter] 64 Respiratory Rate 19 18 Respiratory Rate [Jaw] 18 Blood Pressure 134/68 Blood Pressure [Right Upper Arm] 136/75 Pulse Oximetry 95 95 Oxygen Delivery Method Room Air 05/01/25 22:09 Temperature 98.2 F Pulse Rate Pulse Rate [Pulse Oximeter] 64 Respiratory Rate 18 Respiratory Rate [Jaw] Blood Pressure Blood Pressure [Right Upper Arm] 136/75 Pulse Oximetry Oxygen Delivery Method Documenting provider has reviewed patient's vital signs: yes Course Vital Signs Vital signs: Initial Vital Signs Temperature 97.8 F 05/01/25 19:52 Temperature Source Temporal Artery Scan 05/01/25 19:52 Pulse Rate 60 05/01/25 19:52 Pulse Rhythm Regular 05/01/25 19:52 Pulse Strength 3+ Normal 05/01/25 19:52 Respiratory Rate 22 05/01/25 19:52 Blood Pressure 191/91 H 05/01/25 19:52 Blood Pressure Mean 124 H 05/01/25 19:52 Blood Pressure Position Sitting 05/01/25 19:52 Pulse Oximetry 98 05/01/25 19:52 Oxygen Delivery Method Room Air 05/01/25 19:52 Vital Signs Temperature 97.8 F 05/01/25 19:52 Pulse Rate 60 05/01/25 19:52 Respiratory Rate 22 05/01/25 19:52 Blood Pressure 191/91 H 05/01/25 19:52 Pulse Oximetry 98 05/01/25 19:52 Oxygen Delivery Method Room Air 05/01/25 19:52 Temperature 98.2 F 05/01/25 22:09 Pulse Rate 64 05/01/25 22:09 Respiratory Rate 18 05/01/25 22:09 Blood Pressure 136/75 05/01/25 22:09 Pulse Oximetry 95 05/01/25 22:07 Oxygen Delivery Method Room Air 05/01/25 22:07 Medications Administered Medications: Discontinued Medications Generic Name Dose Route Start Last Admin Trade Name Rafiq PRN Reason Stop Dose Admin Sodium Chloride 1,000 mls @ 1,000 mls/hr 05/01/25 20:15 05/01/25 21:27 0.9 % Sodium Chloride 1000 Ml IV 05/01/25 21:14 Infused .Q1H AWILDA Infusion Lorazepam 0.5 mg 05/01/25 20:10 05/01/25 20:23 Lorazepam 2 Mg/Ml Inj IVP 05/01/25 20:11 0.5 mg ONCE ONE Administration MDM - Chest Pain MDM Narrative Medical decision making narrative: During the evaluation of this patient I considered multiple differential diagnosis is. The life-threatening differential diagnosis include coronary disease/[place], pulmonary embolism, pneumothorax, pneumonia, and aortic dissection. Other differential diagnosis included but were not limited to pericarditis, myocarditis, chest wall pain, GERD, esophageal rupture, rib fracture contusion, pleurisy, as well as other etiologies. Medical Records Data Attestation: I reviewed the patient's medical records. Lab Data Labs: Lab Results 05/01/25 05/01/25 Range/Units 20:05 20:15 INR 0.88 L (0.91-1.10) APTT 29 (23-33) Seconds D-Dimer Quant (PE/DVT) < 0.27 (0.00-0.50) ug/ml Sodium 137 (135-149) mmol/L Potassium 4.0 (3.6-5.1) mmol/L Chloride 99 (96-114) mmol/L Carbon Dioxide 27 (20-32) mmol/L Anion Gap 11 (7-15) mEq/L BUN 16 (7-30) mg/dL Creatinine 1.0 (0.5-1.5) mg/dL Estimated Creat Clear 66.10 Estimated GFR 82 ml/min Glucose 109 (60-115) mg/dL Calcium 9.2 (8.4-10.6) mg/dL Magnesium 2.0 (1.5-2.6) mg/dL Total Bilirubin 0.8 (0.1-1.5) mg/dL AST 23 (12-35) U/L ALT 16 (4-50) U/L Alkaline Phosphatase 61 (40-150) U/L Total Protein 7.4 (6.0-8.3) g/dL Albumin 4.6 (3.3-5.0) g/dL POC Troponin I 0.01 (0.01-0.04) ng/ml ECG Data Attestation: I personally reviewed and interpreted this ECG as follows: ECG interpretation date: 05/01/25 Prior ECG tracings: available for review Interpretation: EKG shows normal sinus rhythm, ventricular rate of 60, NC interval 146, QRS is 84, QT is 398, Discharge Plan Discharge Clinical Impression: Jaw pain Patient Disposition: Home w/ Parent or Adult Condition: Stable Instructions: Atypical Facial Pain (ED) Additional Instructions: This is most consistent with atypical facial pain, or what we pain from bruxism. I do still think he needs to have stress test to rule out coronary artery disease although this would be very atypical given the fact 3 kg is remains stable and year troponins which are your blood test is negative, I also checked a further test for blood clots, of your chest or aneurysm. Which was negative. Instymeds for ativan. Activity Level: Light activity Prescriptions: No Action No Known Home Medications Follow Up/Referrals: Horacio Carvalho MD [Primary Care Provider, Family Practice] Stand Alone Forms: [employer] Info Instructions
[2025-05-01 20:34] LABS: Troponin, Point-of-Care* 0.01 ng/ml (0.01-0.04)
[2025-05-01 20:52] LABS: INR 0.88 (0.91-1.10); Prothrombin Time 12.7 Seconds
[2025-05-01 21:09] LABS: Albumin* 4.6 g/dL (3.3-5.0); Chloride* 99 mmol/L (96-114); Sodium* 137 mmol/L (135-149)
[2025-05-01 21:10] LABS: D Dimer Quantitative* < 0.27 ug/ml (0.00-0.50); Potassium* 4.0 mmol/L (3.6-5.1)
[2025-05-01 21:12] LABS: Alanine Aminotransferase* 16 U/L (4-50); Alkaline Phosphatase* 61 U/L (40-150); Anion Gap 11 mEq/L (7-15); Aspartate Amino Transferase* 23 U/L (12-35); Bilirubin Total* 0.8 mg/dL (0.1-1.5); Blood Urea Nitrogen* 16 mg/dL (7-30); Calcium* 9.2 mg/dL (8.4-10.6); Carbon Dioxide* 27 mmol/L (20-32); Creatinine* 1.0 mg/dL (0.5-1.5); Est. Creatinine Clearance* 66.10; Estimated Glomerular Filt Rate 82 ml/min; Glucose* 109 mg/dL (60-115); Total Protein* 7.4 g/dL (6.0-8.3)
== END 2025-05-01 22:10 | disposition home or self-care (01) ==
PROVIDERS: Emergency Provider Family Medicine; PCP Family Medicine
DX: R68.84 Jaw pain (principal); R03.0 Elevated blood-pressure reading, without diagnosis of hypertension
CPT/HCPCS: 36415; 80053; 83735; 84484; 85379; 85610; 85730; 93005; 94761; 96361; 96374; 99284; 99285; J2060; J7030

== ENCOUNTER 2025-05-11 12:43 | Outpatient (CLI) | payer MEDICARE, BC, SELFPAY ==
[2025-05-11 13:50] VITALS: BP 178/80; PULSE 64; RESP 16
--- NOTE | 2025-05-11 13:58 | P.STN_ITS ---
Stress Test Note Date Date Seen: 05/11/25 Date of test: 05/11/25 Providers Primary care provider: Horacio Carvalho Stress test physician: Betsy Moore Stress Test Note Stress test ordered: Stress Echo Indication for test: ED visit with jaw pain. Stress test medicine: None Results discussion: Resting EKG: Sinus bradycardia, 54 beats per minute, flipped T-wave lead V1 without ST segment change. Resting blood pressure: 144/74 Stress test: Patient is consented on ordered stress test of treadmill exercise stress echo and agrees to proceed. Standard [facility] protocol was followed. The preliminary pre stress echo showed probable bicuspid valve without significant valvular abnormalities. I did have the patient proceed to stress testing. Patient was able to exercise to his target heart rate and requesting to stop once we met the target heart rate due to reaching exercise capacity. He had no chest pain, no jaw pain, no concerning symptoms outside of being at that level exercise. He exercised to 10 minutes 2nd it equivalent to 11.7 Mets. He had a maximum heart rate of 134 beats per minute which was 103% of a calculated target heart rate of 129. Patient had a maximal blood pressure measured during exercise 182/62. Had a rate pressure product of 24,388. Patient had no arrhythmia but during recovery had inferior and lateral precordial leads V4 through C6 ST segment depression suggestive of ischemia. Await echo images to couple this for a full formal diagnostic. Patient is asymptomatic. Patient did have hypertensive response during exercise. Impression: Subjectively negative, objectively positive EKG suggestive of ischemia in inferior and lateral precordial leads V4 through V6. Probable bicuspid aortic valve. Hypertensive response. Follow up suggested: Patient was discharged home in stable condition. We did review that they need to watch his blood pressure, he had a hypertensive response with exercise and if there is any evidence hypertension, would recommend initiation of appropriate medical management. If the nuclear worker technician confirms bicuspid aorta, full formal echo should be ordered. He has a follow-up appointment with his primary Dr. Carvalho on May 25. We will await the echo images to couple this for a full formal diagnostic. If echo images are not suggestive of ischemia, the EKG very likely represents a false positive.
== END 2025-05-11 13:57 | disposition home or self-care (01) ==
PROVIDERS: PCP Family Medicine; Visit Provider Family Medicine
DX: R07.9 Chest pain, unspecified (principal); Q23.81 Bicuspid aortic valve; I35.0 Nonrheumatic aortic (valve) stenosis; R68.84 Jaw pain
CPT/HCPCS: 93016; 93325; 93351

== ENCOUNTER 2025-05-24 10:10 | Outpatient (CLI) | payer MEDICARE, BC, SELFPAY | END 2025-05-24 10:11 | disposition home or self-care (01) | LOC: NFLDREF 05-29 08:37 | PROVIDERS: PCP Family Medicine; Referring Provider Family Medicine; Visit Provider Family Medicine | DX: E78.5 Hyperlipidemia, unspecified (principal); Z12.5 Encounter for screening for malignant neoplasm of prostate | CPT/HCPCS: 80053; 80061; G0103 ==